=== PATIENT | female | born 1990 | race Caucasian/White ===

== ENCOUNTER 2016-11-30 14:16 | Emergency (ER) | payer OTHER ==
--- NOTE | 2016-11-30 16:30 | EDPHY ---
H & P Stated Complaint: general malaise, L hip pain, neck pain, recent strep, HAs, abd pain Time Seen by Provider: 11/30/16 16:30 - Medical/Surgical History Hx Asthma: No Hx Chronic Respiratory Disease: No Hx Diabetes: No Hx Cardiac Disease: No Hx Renal Disease: No Hx Cirrhosis: No Hx Alcoholism: No Hx HIV/AIDS: No Hx Splenectomy or Spleen Trauma: No Other PMH: denies - Social History Smoking Status: Never smoked Constitutional: Initial Vital Signs Temperature (C) 37.1 C 11/30/16 14:27 Heart Rate 93 11/30/16 14:27 Respiratory Rate 18 11/30/16 14:27 Blood Pressure 134/71 H 11/30/16 14:27 O2 Sat (%) 98 11/30/16 14:27 O2 Delivery Mode Room Air Allergies/Adverse Reactions: No Known Allergies Allergy (Unverified 11/30/16 14:26) Home Medications: Medication Instructions Recorded AZITHROMYCIN [Z-PACK] 250 mg PO DAILY #1 packet 11/30/16 Hydrocodone/APAP 5/325 [[place] 1 - 2 each PO Q4-6PRN PRN #20 tab 11/30/16 5/325] Ondansetron Odt [Zofran Odt 4 mg 4 mg PO Q4 PRN #10 tab 11/30/16 (RX)] Sufamethoxazole 11/30/16 methylPREDNISolone [Medrol Dose 1 each PO AD #1 ea 11/30/16 Law] Medical Decision Making ED Course/Re-evaluation: CHIEF COMPLAINT: Headache, neck pain, joint pain HISTORY OF PRESENT ILLNESS: The patient is a 26 y/o female complaining of lethargy, headache, and myalgias for the last week. On Saturday, she developed a constant headache localized to her occipital region with associated eye pressure and photophobia. She slept for a long time. Saturday night and then developed left hip pain. By Saturday morning her pain caused difficulty walking and she missed class. She initially attributed this pain to menstrual cramping. On Saturday, her hip pain was still present but more mild and she developed sudden neck spasm and pain when bending over to tie her shoes. She went to urgent care and a throat swab was positive for strep, though she denies throat symptoms at any point, and she was treated with amoxicillin. She received an antiinflammatory injection at that visit, which improved her hip pain and neck spasm. Her neck pain has persisted and now radiates into her left trapezius and shoulder. She denies a fever at any point. She is normally healthy. REVIEW OF SYSTEMS: A 10 point review of systems was performed and is negative with the exception of the elements mentioned in the history of present illness. PHYSICAL EXAM: HR, BP, O2 Sat, RR. Temp noted General Appearance: Alert, well hydrated, appropriate, and non-toxic appearing. Head: Atraumatic without scalp tenderness or obvious injury Eyes: Pupils equal, round, reactive to light and accommodation, EOMI, no trauma , no injection. Ears: Clear bilaterally, no perforation, normal landmarks Nose: Atraumatic, no rhinorrhea, clear. Throat: There is no erythema or exudates, no lesions, normal tonsils, mucus membranes moist. Neck: Supple, nontender, no lymphadenopathy. No meningismus. Respiratory: No retractions, no distress, no wheezes, and no accessory muscle use. Lungs are clear to auscultation bilaterally. Cardiovascular: Regular rate and rhythm, no murmurs, rubs, or gallops. Good capillary refill all extremities. Gastrointestinal: Abdomen is soft, nontender, non-distended, no masses, no rebound, no guarding, no peritoneal signs. Musculoskeletal: Normal active ROM of all extremities, atraumatic. Neurological: Alert, appropriate, and interactive. The patient has non-focal cranial nerves, motor, sensory, and cerebellar exam. Skin: No rashes, good turgor, no nodules on palpation. Past medical history: Tonsillitis Past surgical history: noncontributory Family history: noncontributory Social history: [employer] student. Single. DIFFERENTIAL DIAGNOSIS: The differential diagnosis for the patient's neck pain included but was not limited to cervical radiculopathy, viral syndrome, musculoskeletal pain, epidural abscess, herniated disk, spinal fracture, and intra-abdominal causes including urinary system. MEDICAL DECISION MAKING: This is a healthy and well-appearing 26 y/o female who presents with week-long history of fatigue, headache, and joint pain and acute onset neck pain 2 days ago. Her symptoms are consistent with a viral or bacterial syndrome and acute cervical radiculopathy. I've recommended starting azithromycin for strep and Medrol for radiculopathy and follow up with cardiac exercise specialist as needed. Return precautions discussed. He is comfortable with this plan. Departure - Departure Disposition: Home, Routine, Self-Care Clinical Impression: Cervical radiculopathy Headache Qualifiers: Headache type: other headache syndrome Qualified Code(s): G44.89 - Other headache syndrome Condition: Good Instructions: Acute Headache (ED), Cervical Radiculopathy (ED), Neck Pain (ED) Additional Instructions: 1. Take Medrol as prescribed. Complete the entire prescription. 2. Use Vicodin as prescribed when needed for severe pain. 3. Take z-pack as prescribed. Be sure to complete the entire prescription. 4. Use Zofran as prescribed when needed for nausea or vomiting. 5. Follow up with Dr. Cooper, back specialist, for continued symptoms over the next few days. 6. Return to the ED for severe pain, weakness or numbness on one side of your body, confusion, or other worsening of condition. Referrals: NONE *PRIMARY CARE P,. [Primary Care Provider] - As per Instructions [facility] [Clinic] - As per Instructions Sebastian Cooper MD [Medical Doctor] - As per Instructions Prescriptions: AZITHROMYCIN [Z-PACK] 250 mg PO DAILY #1 packet Hydrocodone/APAP 5/325 [[place] 5/325] 1 - 2 each PO Q4-6PRN PRN #20 tab PRN Reason: Pain, Moderate methylPREDNISolone [Medrol Dose Law] 1 each PO AD #1 ea Ondansetron Odt [Zofran Odt 4 mg (RX)] 4 mg PO Q4 PRN #10 tab PRN Reason: Nausea/Vomiting, Use 1st Report Scribed for: Adalberto Garcia Report Scribed by: Ricarda Kraft Date of Report: 11/30/16 Time of Report: 16:44
[2016-11-30 16:54] VITALS: BP 128/86; PULSE 66; RESP 16; TEMP 98.2; O2SAT 97
== END 2016-11-30 17:05 | disposition home or self-care (01) ==
DX: M54.12 Radiculopathy, cervical region (principal); G44.89 Other headache syndrome

== ENCOUNTER 2017-09-02 10:33 | Emergency (ER) | payer OTHER ==
--- NOTE | 2017-09-02 10:45 | EDPHY ---
H & P Stated Complaint: fell on , c/o head and neck pain and fatigue Time Seen by Provider: 09/02/17 10:44 HPI/ROS: HPI: This is a 26-year-old female who presents with Chief Complaint: fell on , c/o head and neck pain and fatigue Location: Head Quality: Injury Duration: evening Signs and Symptoms: No bleeding, no radiation, no numbness, no weakness, no tingling, no incontinence, no decreased range of motion, no swelling, + pain, no fever Timing: Gradually worsening Severity: Moderate Context:Patient reports that she drank 2 alcoholic beverages evening and went to bed. She woke up in the middle of the night to use the bathroom and then remembers waking up on the bathroom floor with her pants down. When she woke up, she felt nauseous and vomited her stomach contents x1. She reports that she normally does not drink and believes that she was intoxicated. Upon waking up the next day she noticed a bruise on her right baptism and associated aching nonradiating headache that was moderate in nature. She reports that she is prone to tension and migraine type headaches. She also complains of posterior midline neck pain that is worse on the right over the last few days. She feels like she is mentally slow and kept falling asleep yesterday. Denies nausea/vomiting/amnesia. Does not take any blood thinners. No prior history of concussions. Modifying Factors: None Comment: ROS: see HPI Constitutional: No fever, no chills, no weight loss Eyes: No blurred vision Respiratory: No shortness of breath, no cough Cardiovascular: No chest pain Gastrointestinal: No nausea, + vomiting no diarrhea Genitourinary: No dysuria Extremities: No myalgias Neurologic: No weakness, no numbness Skin: No rashes Hematologic: No bruising, no bleeding MEDICAL/SURGICAL/SOCIAL HISTORY: Medical history: anxiety/depression, insomnia Surgical history: Denies Social history: Never smoked. Student at [employer] CONSTITUTIONAL: Extremely polite nontoxic-appearing young adult white female, awake and alert, no obvious distress HEENT: Atraumatic and normocephalic, PERRL, EOMI. no globe entrapment, no raccoon eyes. no Hernandez signs.Tympanic membranes clear. No tympanic membrane rupture. Nares patent; no septal hematoma. Oropharynx clear, no exudate and moist pink mucosa. No malocclusion. no dental trauma. Airway patent. No lymphadenopathy. NECK: supple, mild midline tenderness, flexion 45 degrees, extension 45 degrees , right and left lateral flexion 45 degrees. No meningismus. Cardiovascular: Normal S1/S2, regular rate, regular rhythm, without murmur rub or gallop. PULMONARY/CHEST: Symmetrical and nontender. no crepitus. Clear to auscultation bilaterally. Good air movement. No accessory muscle usage. ABDOMEN: Soft, nondistended, nontender, no ecchymosis, no rebound, no guarding , no peritoneal signs, no masses or organomegaly. No CVAT. EXTREMITIES: 2/2 pulses, no deformities, no clubbing, no cyanosis or edema. NEUROLOGICAL: no focal neuro deficits. GCS 15. SKIN: Warm and dry, no erythema. no rash. Good capillary refill. Source: Patient Exam Limitations: No limitations - Personal History LMP (Females 10-55): 1-7 Days Ago - Medical/Surgical History Hx Asthma: No Hx Chronic Respiratory Disease: No Hx Diabetes: No Hx Cardiac Disease: No Hx Renal Disease: No Hx Cirrhosis: No Hx Alcoholism: No Hx HIV/AIDS: No Hx Splenectomy or Spleen Trauma: No Other PMH: anxiety/depression, insomnia - Social History Smoking Status: Never smoked Constitutional: Initial Vital Signs Temperature (C) 36.6 C 09/02/17 10:36 Heart Rate 79 09/02/17 10:36 Respiratory Rate 18 09/02/17 10:36 Blood Pressure 120/74 09/02/17 10:36 O2 Sat (%) 96 09/02/17 10:36 O2 Delivery Mode Room Air Allergies/Adverse Reactions: No Known Allergies Allergy (Verified 09/02/17 10:34) Home Medications: Medication Instructions Recorded Bactrim DS 09/02/17 Cyclobenzaprine [Flexeril 10 MG 10 mg PO TID PRN #15 tab 09/02/17 (*)] INTUNIV 09/02/17 LaMICtal 09/02/17 traZODone 09/02/17 Medical Decision Making - Diagnostics Imaging Results: Imaging Impressions Cervical Spine CT 09/02/17 10:55 Impression: 1. No significant intracranial abnormality seen. 2. Reversal the normal lordosis of the mid cervical spine. This is nonspecific but can be seen with muscle spasm versus positioning for the scan. 3. No acute osseous at about is seen about the cervical spine. If symptoms worsen, additional imaging may be necessary. Findings discussed with Ayse Hahn PAC at 11:48 hour, 09/02/2017. Head CT 09/02/17 10:55 Impression: 1. No significant intracranial abnormality seen. 2. Reversal the normal lordosis of the mid cervical spine. This is nonspecific but can be seen with muscle spasm versus positioning for the scan. 3. No acute osseous at about is seen about the cervical spine. If symptoms worsen, additional imaging may be necessary. Findings discussed with Ayse Hahn PAC at 11:48 hour, 09/02/2017. ED Course/Re-evaluation: Based on alcohol intoxication and question of LOC head CT imaging ordered. Cervical CT image ordered due to midline tenderness. 1152: Called by Radiology, Dr. Ortiz, who reports that head CT scan shows no acute intracranial process. CT cervical spine shows no fracture, disc herniation. Does show some straightening of the lordosis consistent with muscle spasm. I have given the patient prescription for Flexeril and advised NSAID use. Patient is presenting with symptoms of a concussion and will be for referred to Dr. Jordan [facility]. This patient was seen under the supervision of my secondary supervising physician. I evaluated care for this patient independently. Discussed this patient with Dr. Tineo. Differential Diagnosis: Head injury including but not limited to concussion, skull fracture, intraparenchymal contusion, subarachnoid, subdural and epidural hematoma. Departure - Departure Disposition: Home, Routine, Self-Care Clinical Impression: Cervical paraspinal muscle spasm Concussion Qualifiers: Encounter type: initial encounter Loss of consciousness presence/duration: with LOC of 30 min or less Qualified Code(s): S06.0X1A - Concussion with loss of consciousness of 30 minutes or less, initial encounter Condition: Good Instructions: Cervical Strain (ED), Concussion (ED), Head Injury (ED) Additional Instructions: Rest as much as possible until you are feeling better. Consume a minimum of 8-10 glasses of water or electrolyte fluid replacement drinks that include Gatorade, Powerade, Pedialyte. Please take Tylenol 650 mg every 4 hr and/or ibuprofen 600 mg every 8 hr as needed for pain, headache. Please observe concussion precautions and follow up with Dr. Jordan in the [facility]ussion Clinic. Take Flexeril every 8 hr as needed for cervical muscle spasms. Please avoid any strenuous physical or contact activities until all symptoms have resolved. Return to the ER immediately if you have progressive headaches, neurologic deficits, gait abnormality, visual disturbance, slurred speech, or any other symptom that concerns you. Referrals: Laura Delatorre MD [Primary Care Provider] - As per Instructions Tracy Jordan MD [Medical Doctor] - As per Instructions Stand Alone Forms: School Excuse Prescriptions: Cyclobenzaprine [Flexeril 10 MG (*)] 10 mg PO TID PRN #15 tab PRN Reason: Spasms
[2017-09-02 12:27] VITALS: BP 109/64
== END 2017-09-02 12:28 | disposition home or self-care (01) ==
DX: S06.0X1A Concussion with loss of consciousness of 30 minutes or less, initial encounter (principal); M62.838 Other muscle spasm; W18.39XA Other fall on same level, initial encounter; Y92.002 Bathroom of unspecified non-institutional (private) residence as the place of occurrence of the external cause; Y99.8 Other external cause status; Y93.89 Activity, other specified